=== PATIENT | female | born 1995 | race Caucasian/White ===

== ENCOUNTER 2021-12-17 15:18 | Outpatient (CLI) | payer OTHER | END 2021-12-17 15:29 | disposition home or self-care (01) | LOC: RAD 15:18 | PROVIDERS: ATTEND Orthopaedic Surgery | DX: M25.561 Pain in right knee (principal); M25.562 Pain in left knee ==

== ENCOUNTER 2022-03-21 15:43 | Emergency (ER) | payer OTHER ==
[~2022-03-21] VITALS: Ht 160 cm; Wt 62.6 kg
== END 2022-03-21 19:42 | disposition home or self-care (01) ==
LOC: ER 15:43
DX: A49.3 Mycoplasma infection, unspecified site (principal)

== ENCOUNTER 2022-06-10 12:52 | Emergency (ER) | payer OTHER ==
[~2022-06-10] VITALS: Ht 160 cm; Wt 61.7 kg
[2022-06-10] MEDS ORDERED: CEFACLOR500 MG PO (17:41)
== END 2022-06-10 18:09 | disposition home or self-care (01) ==
LOC: ER 12:52
DX: S89.92XA Unspecified injury of left lower leg, initial encounter (principal); W19.XXXA Unspecified fall, initial encounter; Y93.9 Activity, unspecified; Y92.9 Unspecified place or not applicable; M25.562 Pain in left knee